=== PATIENT | female | born 1930 | race Caucasian/White ===

== ENCOUNTER 2017-03-03 14:48 | Observation (INO) | payer OTHER ==
[2017-03-03 14:59] VITALS: BMI 23.6
--- NOTE | 2017-03-03 15:41 | PDOC ---
Attending Attestation - Resident Resident Name: Iveth Peck - ED Attending Attestation I have performed the following: I have examined & evaluated the patient, The case was reviewed & discussed with the resident, I agree w/resident's findings & plan, Exceptions are as noted - HPI HPI: 03/03/17 15:58 The patient is an 86 year old female, anticoagulated with coumadin, who presents to the ED for evaluation s/p mechanical fall with head trauma, facial trauma, and nasal laceration. 03/03/17 16:25 - Physicial Exam PE: 03/03/17 15:59 Vitals noted C spine non-tender Facial laceration noted 03/03/17 16:25 - Medical Decision Making 03/03/17 15:59 Given anticoagulated status will neuroimage with head CT Will obtain facial bones CT Will obtain labs Residents to repair facial laceration The patient will require observation 03/03/17 16:32 03/03/17 16:52 Labs pending Scans pending Clinical impression: Closed head injury in an anticoagulated patient Facial laceration Case discussed in detail with oncoming Emergency Physician including history, physical exam and ancillary studies. Oncoming Emergency Physician has assumed care for the patient and will complete the evaluation and treatment. Discharge Disposition - Diagnosis Closed head injury - Discharge Dispostion Last Admission D/C Date: 11/04/08
[2017-03-03 16:35] LABS: BASOPHIL 0.5 % (0-2.0); EOSINOPHIL 1.8 % (0-4.5); MCH 29.9 pg (25.7-33.7); MCHC 32.5 g/dl (32.0-36.0); MEAN CELL VOLUME 92.1 fl (80-96); MEAN PLT VOLUME 7.9 fl (7.5-11.1); NEUTROPHILS 82.3 % (42.8-82.8); PLATELET COUNT 243 K/MM3 (134-434); RDW 14.5 % (11.6-15.6); WHITE BLOOD COUNT 7.5 K/mm3 (4.0-10.0)
[2017-03-03 16:41] LABS: INR 1.88 (0.82-1.09)
[2017-03-03 16:44] LABS: ACTIVATED PTT 40.2 SECONDS (26.9-34.4)
[2017-03-03 17:05] LABS: ALBUMIN 3.8 g/dl (3.4-5.0); ANION GAP 13 (8-16); CO2 26 mmol/L (21-32); CREATININE 0.7 mg/dL (0.55-1.02); GLUCOSE,RANDOM 90 mg/dL (74-106); MAGNESIUM 2.3 mg/dL (1.8-2.4); PHOSPHOROUS 3.3 mg/dL (2.5-4.9); SGOT/AST 25 U/L (15-37); SGPT/ALT 25 U/L (12-78)
[2017-03-03 17:07] LABS: ALK PHOS 98 U/L (45-117); BILIRUBIN,TOTAL 0.7 mg/dL (0.2-1.0)
--- NOTE | 2017-03-03 17:30 | PDOC ---
History of Present Illness - General Chief Complaint: Injury Stated Complaint: INJURY Time Seen by Provider: 03/03/17 15:40 History Source: Patient, Family Exam Limitations: Dementia - History of Present Illness Initial Comments: 03/03/17 17:30 03/03/17 17:30 This is an 86 yo F with PMH of a fob on war (INR 1 mo ago 1.8), dementia, HLD, who presents s/p witnessed mechanical fall. At 9 am, her son witnessed her lose balance and fall forward, hitting her face on a drawer standing abotu 3 feet high. He caught her before she fell on floor. She did not lose consciousness at any time. She denies dizziness, palpitations chest pain, flushing, change in vision, vertigo. When she hit her face, she developed a laceration starting at her R nasal fold and running down her cheek. She currently denies h/a, n/v, AMS , weakness or numbness. She denies bony pain in spine, skull or extremities. She has not been placed on any new medications recently PCP: Dr Harriett Vega 03/03/17 17:38 03/03/17 17:42 03/03/17 17:46 03/03/17 17:46 Past History - Past Medical History Allergies/Adverse Reactions: Allergies Allergy/AdvReac Type Severity Reaction Status Date / Time No Known Allergies Allergy Verified 03/03/17 16:26 Home Medications: Ambulatory Orders Metoprolol Succinate [Toprol Xl -] 25 mg PO DAILY 03/03/17 Warfarin Sodium [Coumadin] 3 mg PO DAILY 03/03/17 Cardiac Disorders: Yes (A-Fib) HTN: Yes Hypercholesterolemia: Yes - Immunization History Immunization Up to Date: Yes - Psycho/Social/Smoking Cessation Hx Suicidal Ideation: No Smoking History: Never smoked Have you smoked in the past 12 months: No Information on smoking cessation initiated: No Hx Alcohol Use: No Drug/Substance Use Hx: No Substance Use Type: None Review of Systems - Review of Systems Able to Perform ROS?: Yes (dementia ) Is the patient limited Liberian proficient: No Constitutional: No: Chills, Fever, Weakness HEENTM: No: Blurred Vision, Double Vision, Nose Congestion, Throat Pain, Difficulty Swallowing Respiratory: No: Cough, Orthopnea, Shortness of Breath, Hemoptysis Cardiac (ROS): No: Chest Pain, Edema, Lightheadedness, Palpitations, Syncope ABD/GI: No: Abdominal Distended, Constipated, Diarrhea, Nausea, Vomiting : No: Dysuria, Flank Pain Musculoskeletal: No: Back Pain, Joint Pain, Muscle Pain, Muscle Weakness, Neck Pain Integumentary: Yes: Lesions. No: Bruising, Erythema Neurological: Yes: Unsteady Gait (chronic due to previous hip surgery ). No: Headache, Numbness, Paresthesia, Seizure, Ataxia, Dizziness Endocrine: No: Change in Weight Hematologic/Lymphatic: Yes: Easy Bleeding All Other Systems: Reviewed and Negative *Physical Exam - Vital Signs Last Vital Signs Temp Pulse Resp BP Pulse Ox 98.1 F 99 H 18 134/71 97 03/03/17 14:53 03/03/17 14:53 03/03/17 14:53 03/03/17 14:53 03/03/17 14:53 - Physical Exam Comments: 03/03/17 17:44 General: NAD, awake, alert, oriented to place and self HEENT: normocephalic, R Sided 3 cm laceration ectending form lateral nasal fold down cheek crease, PERRLA, EOMI, sclera anicteric, conjunctiva clear, moist mucous membranes CV: RRR S1S2 Resp: cta b/l GI: normoactive bowel sounds, soft, nondistended, nontender no mass Neuro: CN II-XII intact, strength 4+/5 in all extremities, reflexes 1+ bicep and patellar, sensation intact Musculoskeletal:no peripheral edema. 03/03/17 17:45 Procedures - Laceration/Wound Repair Right Medial Face Wound Length: 2.6 to 5.0 cm Wound Explored: contaminated Wound's Depth, Shape: superficial Irrigated w/ Saline: Yes Betadine Prep: No (peroxide) Anesthesia: 1% Lidocaine Wound Debrided: minimal Wound Repaired With: Sutures Suture Size/Type: 5:0 Number of Sutures: 7 (running ) Layer Closure: No (subcuticular ) Deep Layer Suture Size/Type: other ( polysorb) Sterile Dressing Applied: Yes (glue ) ED Treatment Course - LABORATORY CBC & Chemistry Diagram: 03/03/17 16:15 03/03/17 16:15 - ADDITIONAL ORDERS Additional order review: Laboratory Results 03/03/17 03/03/17 03/03/17 16:15 16:15 16:15 INR 1.88 H PTT (Actin FS) 40.2 H Sodium 145 Potassium 4.2 Chloride 106 Carbon Dioxide 26 Anion Gap 13 BUN 20 H Creatinine 0.7 Creat Clearance w eGFR > 60 Random Glucose 90 Calcium 9.0 Phosphorus 3.3 Magnesium 2.3 Total Bilirubin 0.7 AST 25 ALT 25 Alkaline Phosphatase 98 Total Protein 7.0 Albumin 3.8 03/03/17 16:15 RBC 4.48 MCV 92.1 MCHC 32.5 RDW 14.5 MPV 7.9 Neutrophils % 82.3 Lymphocytes % 9.2 Monocytes % 6.2 Eosinophils % 1.8 Basophils % 0.5 Medical Decision Making - Medical Decision Making 03/03/17 17:58 Patient presents s/p mechanical fall with face trauma and resultant facial laceration. patient on warfarin laceration repaired with subcuticular sutures. 03/03/17 18:00 1.88 INR, 40.2 PTT CBC CMP unremarkable facial bone and head ct w/o contrast p/d 03/03/17 18:01 Spoke to [facility] covering PCP, patient to be placed in [facility] for repeat CT in 12 hr 03/03/17 18:55 *DC/Admit/Observation/Transfer Diagnosis at time of Disposition: Closed head injury - Discharge Dispostion Admit: Yes - Referrals Referrals: Sajan Badillo MD [Staff Physician] -
[2017-03-04 03:36] LABS: URINE APPEARANCE SLCLOUDY; URINE BILIRUBIN NEGATIVE (NEGATIVE); URINE BLOOD NEGATIVE (NEGATIVE); URINE COLOR YELLOW; URINE GLUCOSE (UA) NEGATIVE (NEGATIVE); URINE KETONE TRACE (NEGATIVE); URINE NITRITE NEGATIVE (NEGATIVE); URINE UROBILINOGEN NEGATIVE E.U./dl (0.2-1.0)
[2017-03-04 03:39] LABS: URINE LEUK ESTERASE 2+ (NEGATIVE); URINE PROTEIN 1+ (NEGATIVE)
[2017-03-04 03:40] LABS: URINE BACTERIA RARE /hpf (NONE SEEN); URINE MUCUS FEW; URINE RBC 7 /hpf (0-3); URINE WBC 235 /hpf (3-5)
[2017-03-04 06:14] VITALS: PULSE 85
[2017-03-04] MEDS ORDERED: METOPROLOL SUCCINATE 25 MG TAB.SR.24H (FP) PO SCH (10:00)
--- NOTE | 2017-03-04 11:01 | HP ---
Admitting History and Physical - Primary Care Physician PCP: Sajan Badillo - Admission Chief Complaint: fall History of Present Illness: he patient is an 86 year old female, anticoagulated with coumadin, who presentED to the ED for evaluation s/p mechanical fall with head trauma, facial trauma, and nasal laceration. IN THE ER HER INR WAS SUB-THERAPEUTIC. CT HEAD WAS NEGATIVE. History Source: Patient, Family Member (SON-PATIENT LIVES WITH HER SON) Limitations to Obtaining History: No Limitations - Past Medical History Cardiovascular: Yes: Deep Vein Thrombosis (QUESTIONABLE), HTN, Hyperlipdemia, Murmur ...: No - Smoking History Smoking history: Never smoked Have you smoked in the past 12 months: No - Alcohol/Substance Use Hx Alcohol Use: No Home Medications - Allergies Allergies/Adverse Reactions: Allergies Allergy/AdvReac Type Severity Reaction Status Date / Time No Known Allergies Allergy Verified 03/03/17 16:26 - Home Medications Home Medications: Ambulatory Orders Metoprolol Succinate [Toprol XL -] 25 mg PO DAILY 03/03/17 Warfarin Na [Coumadin] 2 mg PO 03/04/17 Warfarin Na [Coumadin] 3 mg PO 03/04/17 Physical Examination Vital Signs: Vital Signs Temperature 98.6 F 03/04/17 05:00 Pulse Rate 85 03/04/17 05:00 Respiratory Rate 18 03/04/17 05:00 Blood Pressure 123/71 03/04/17 05:00 O2 Sat by Pulse Oximetry (%) 98 03/04/17 05:27 Constitutional: Yes: Well Nourished Cardiovascular: Yes: Regular Rate and Rhythm, Murmur (LSB GRADE III) Respiratory: Yes: Regular Gastrointestinal: Yes: Normal Bowel Sounds Musculoskeletal: Yes: WNL Extremities: Yes: WNL Edema: No Peripheral Pulses WNL: Yes Integumentary: Yes: Laceration (RIGHT NASAL BRIDGE) Neurological: Yes: Alert Psychiatric: Yes: Alert Imaging - Results Cat Scan: Pending (CT HEAD REPEAT IS PENDING), Report Reviewed Problem List - Problems (1) Closed head injury Assessment/Plan: CT HEAD X [address] HEAD IS PENDING. D/C HOME IF REPEAT CT HEAD IS NEGATIVE. Code(s): S09.90XA - UNSPECIFIED INJURY OF HEAD, INITIAL ENCOUNTER (2) Fall Assessment/Plan: NO OTHER FALLS IN PAST 1 YEAR, USUALLY STEADY GAIT, USES 4 POINT CANE AT HOME. LIVES WITH SON, SPENDS TIME AT [facility]. Code(s): W19.XXXA - UNSPECIFIED FALL, INITIAL ENCOUNTER Assessment/Plan -REPEAT CT HEAD -RESUME COUMADIN STARTING TOMORROW AT HER REGULAR DOSE, FOLLOW UP OUTPATIENT WITHIN 2 WEEKS.
[2017-03-04] MEDS ORDERED: TETANUS AND DIPHTHERIA TOXOID 0.5 ML DISP.SYRIN IM ONE (11:06)
[2017-03-04 15:04] VITALS: BP 116/61; TEMP 99
== END 2017-03-04 16:43 | disposition home or self-care (01) ==
LOC: JER 14:48 → INTOOBSV 18:59 → JERBED 18:59 → J7W 21:50
PROVIDERS: ADMIT Family Medicine; ATTEND Family Medicine
PROC: 0HQ1XZZ Repair Face Skin, External Approach (ICD-10-PCS; principal; 2017-03-03)
PROC: 3E0234Z Introduction of Serum, Toxoid and Vaccine into Muscle, Percutaneous Approach (ICD-10-PCS; 2017-03-03)
DX: S09.90XA Unspecified injury of head, initial encounter (principal); S01.411A Laceration without foreign body of right cheek and temporomandibular area, initial encounter; I48.91 Unspecified atrial fibrillation; I10 Essential (primary) hypertension; E78.5 Hyperlipidemia, unspecified; F03.90 Unspecified dementia, unspecified severity, without behavioral disturbance, psychotic disturbance, mood disturbance, and anxiety; Z79.01 Long term (current) use of anticoagulants; W01.190A Fall on same level from slipping, tripping and stumbling with subsequent striking against furniture, initial encounter; Y93.9 Activity, unspecified; Y92.9 Unspecified place or not applicable
CPT/HCPCS: 36415; 70450-TC; 70486-TC; 71010-TC; 80053; 81003; 81015; 83735; 84100; 85025; 85610; 85730; 99285-25; G0378